=== PATIENT | male | born 1995 | race Caucasian/White ===

== ENCOUNTER 2024-12-23 12:29 | Emergency (ER) | payer BC, SELFPAY ==
[2024-12-23 12:29] VITALS: BP 132/95; PULSE 112; RESP 14; TEMP 36.1; O2SAT 98; BMI 27.0
--- NOTE | 2024-12-23 12:37 | ED.VIS.LOWEX ---
HPI History of Present Illness Chief Complaint: Laceration Informant: patient and spouse/S.O. Narrative Narrative: Chainsaw injury above left knee prior to arrival. Cutting down trees chain was oscillating actually came down above his knee. Tetanus about 7 years ago. No anticoagulants. No loss of function. No other injuries. Tetanus Immunization: 5-10 years Prior similar symptoms: No PFSH PFSH Medical History no medical history Home Medications ?Medication ?Instructions ?Recorded ?Last Taken ?Type NK 12/23/24 Unknown History Allergy/AdvReac Type Severity Reaction Status Date / Time No Known Allergies Allergy Verified 12/23/24 12:32 Social History Smoking Status: Unknown if ever smoked ROS ROS ED Constitutional Constitutional ED: Denies fever(s) Cardiovascular Cardiovascular: Denies chest pain Respiratory/Chest Respiratory/Chest: Denies cough Gastrointestinal Gastrointestinal: Denies diarrhea or vomiting Musculoskeletal Musculoskeletal: Denies none Integumentary Reports wounds and other Details: Left knee. ; Denies rash Neurologic Neurologic: Denies weakness EXAM Physical Exam Const Vital Signs: 12/23/24 12:29 12/23/24 13:24 Temperature 97 F L 98 F Temperature Source Temporal Pulse Rate 112 H 67 Respiratory Rate 14 12 Blood Pressure 132/95 H 116/74 Blood Pressure Mean 107 88 Pulse Ox 98 99 Oxygen Delivery Method Room Air Positive well nourished and well developed General Appearance ED: well developed HEENT normocephalic and atraumatic Eyes General Eye ED: Yes normal appearance of both eyes Neck full ROM Resp normal respiratory effort and normal air movement Cardio regular rate and regular rhythm GI soft to palpation Extremity normal to inspection and full ROM Extremity Narrative: Left lower extremity: Full range of motion knee extensor intact. 3.5 cm laceration above the knee subcutaneous exposure. No tendon exposure. No active bleeding. Neuro oriented x3 Skin no rashes or lesions noted and no wounds MDM MDM MDM Narrative Medical decision making narrative: Interventions / MDM: Differential diagnosis: Left knee laceration, tetanus vaccination Diagnosis considered but do not suspect: No clinical tendon injury. My EKG interpretation: N/A Imaging independently reviewed and interpreted by myself: N/A External documents reviewed: N/A Test considered but not ordered:N/A ED course: Patient chainsaw injury above the knee no tendon injury. No active bleeding. Tetanus will be updated, will prep for laceration repair. Procedure note: Normal sterile conditions. Verbal consent. 1% lidocaine 4 cc used for local analgesia of the wound. Total 5, 4-0 simple interrupted sutures placed with good approximation of the wound. Bacitracin and dressing placed by myself. Patient tolerated the procedure well. Wound care discussed. Patient to follow-up with PCP for suture removal likely in 14 days as an high tension area. All questions were answered. Re-evaluation: stable Disposition discussed with patient/family/significant other: Patient and significant other. Case discussed with consulting clinician: N/A This note was generated with [employer] software. It may contain incorrect words, spelling, and punctuation that were not noted in checking the note before signing. Discharge Plan Triage Chief Complaint: Laceration ED Provider: Domingo Diggs Dx/Rx/DC Orders Clinical Impression: Laceration of left knee without complication, Tetanus toxoid vaccination administered at current visit Instructions: ED Laceration, All Closures Prescriptions: No Action NK Primary Care Provider: Care Physician,No Primary Referrals: Miriam Rico MD [Med Staff - Journeyman Operator Assistant] - 10-14 Days suture removal Activity Restrictions/Additional Instructions: Laceration with no signs of tendon injury. Wound care as discussed. Tetanus was updated. Sutures likely to stay for 2 weeks prior to removal as an high tension area. Follow-up for suture removal. Print Language: Lao Disposition Disposition: Home, Self Care Discharge Date/Time: 12/23/24 13:25
[2024-12-23] MEDS: Lidocaine 1% (20 ml mdv) 20 ML Vial INFILT (12:40)
[2024-12-23] MEDS: Diphth,Pertuss(Acell),Tet Vac 0.5 ML Vial IM (12:41)
[2024-12-23 13:24] VITALS: BP 116/74; PULSE 67; RESP 12; TEMP 36.6; O2SAT 99
== END 2024-12-23 13:25 | disposition home or self-care (01) ==
PROVIDERS: Emergency Provider Emergency Medicine; Visit Provider Emergency Medicine
DX: S81.012A Laceration without foreign body, left knee, initial encounter (principal); W29.3XXA Contact with powered garden and outdoor hand tools and machinery, initial encounter; Z23 Encounter for immunization
CPT/HCPCS: 12002; 90715; 99284